=== PATIENT | female | born 1970 | race Caucasian/White ===

== ENCOUNTER → 2018-11-12 | Outpatient (REF) | payer BC | LOC: M LAB LCGH 10:19 | DX: D28.0 Benign neoplasm of vulva (principal); D26.0 Other benign neoplasm of cervix uteri ==

== ENCOUNTER → 2021-09-07 | Outpatient (REF) | payer BC | LOC: M LAB REF 11:12 | PROVIDERS: ATTEND Advanced Practice Midwife | DX: R31.9 Hematuria, unspecified (principal) ==